=== PATIENT | female | born 1930 | race Caucasian/White ===

== ENCOUNTER 2017-05-02 17:25 | Outpatient (CLI) | payer MEDICARE, OTHER | END 2017-05-02 17:26 | disposition EMS.NT | LOC: EMS 17:25 | PROVIDERS: ATTEND Surgery | DX: R69 Illness, unspecified (principal) ==

== ENCOUNTER 2017-06-09 17:57 | Outpatient (CLI) | payer MEDICARE, OTHER | END 2017-06-09 17:58 | disposition critical access hospital (66) | LOC: EMS 17:57 | PROVIDERS: ATTEND Surgery | DX: F41.9 Anxiety disorder, unspecified (principal) | CPT/HCPCS: A0425; A0429 ==

== ENCOUNTER 2017-06-09 18:23 | Emergency (ER) | payer MEDICARE, OTHER ==
--- NOTE | 2017-06-09 19:23 | ED Physician Documentation ---
History of Present Illness - Stated complaint Stated Complaint: ANXIETY - Chief complaint Chief Complaint: General - History obtained from History obtained from: Patient - History of Present Illness Timing: Other (She has had a lot of losses recently, most notably her about a year and a half ago. She did not take her extended release Xanax this morning, and while cleaning out some of his things she developed a panic attack. She feels better now.) Review of Systems Constitutional: denies: Fever, Chills GI: denies: Abdominal Pain, Nausea, Vomiting Neurologic: denies: Syncope Psychiatric: denies: Suicidal, Homicidal PD PAST MEDICAL HISTORY - Past Medical History Cardiovascular: Hypertension, High cholesterol, Coronary artery disease, [place] Respiratory: Pneumonia Psych: Depression, Anxiety Musculoskeletal: Fibromyalgia, Chronic back pain - Past Surgical History Past Surgical History: Yes Cardiovascular: Coronary stent - Present Medications Home Medications: Ambulatory Orders Medication Instructions Recorded Confirmed Alprazolam [Alprazolam ER] 0.5 mg PO DAILY 07/22/13 06/09/17 Azelastine HCl [Astelin] 137 mcg NS BID 07/22/13 06/09/17 Estradiol 0.05 mg Patch [Vivelle] 1 each TOP DAILY 07/22/13 06/09/17 Metoprolol Succinate 25 mg PO DAILY 07/22/13 06/09/17 Mirtazapine 30 mg PO DAILY 07/22/13 06/09/17 Simvastatin 20 mg PO DAILY 07/22/13 06/09/17 Triazolam 37.5 mg PO QPM 07/22/13 06/09/17 Escitalopram [Lexapro] 20 mg ORAL DAILY 08/25/15 06/09/17 Aspirin/Dipyridamole [Aggrenox] 1 tab PO DAILY 11/22/15 06/09/17 Alprazolam [Xanax] 0.25 mg PO Q8H PRN #15 tablet 06/09/17 Losartan [Cozaar] 25 mg PO DAILY 06/09/17 06/09/17 - Allergies Allergies/Adverse Reactions: Allergies Allergy/AdvReac Type Severity Reaction Status Date / Time clarithromycin [From Biaxin] AdvReac Unknown Rash Verified 10/26/15 11:39 codeine AdvReac Unknown Nausea Verified 10/26/15 11:39 cortisone AdvReac Unknown Rash Verified 10/26/15 11:39 cyclobenzaprine AdvReac Unknown Cramps Verified 10/26/15 11:39 [Cyclobenzaprine] duloxetine HCl * AdvReac Unknown Rash Verified 10/26/15 11:39 [From Cymbalta] fluorometholone AdvReac Unknown Rash Verified 10/26/15 11:39 gabapentin [From Neurontin] AdvReac Unknown Cramps Verified 10/26/15 11:39 ibuprofen [From Advil] AdvReac Unknown Nausea Verified 10/26/15 11:39 iodine AdvReac Unknown Rash Verified 10/26/15 11:39 nepafenac [From Nevanac] AdvReac Unknown Nausea Verified 10/26/15 11:39 oxycodone AdvReac Unknown Nausea Verified 10/26/15 11:39 prednisone AdvReac Unknown Anxiety Verified 10/26/15 11:39 propoxyphene HCl * AdvReac Unknown Nausea Verified 10/26/15 11:39 [From Darvon] ciprofloxacin AdvReac Anxiety Verified 10/26/15 11:39 clonazepam AdvReac Unknown Verified 10/26/15 11:39 iodine Allergy Hives Uncoded 10/26/15 11:39 bees AdvReac Unknown Respiratory Uncoded 10/26/15 11:39 - Social History Does the pt smoke?: No Smoking Status: Former smoker Does the pt drink ETOH?: Yes Does the pt have substance abuse?: No - Immunizations Immunizations are current?: Yes Immunizations: TDAP current <10years PD ED PE NORMAL - Vitals Vital signs reviewed: Yes - General General: Alert and oriented X 3, No acute distress - HEENT HEENT: PERRL, EOMI - Neuro Neuro: Alert and oriented X 3, Normal speech - Psych Psych: Normal mood, Normal affect Results - Vitals Vitals: Vital Signs - 24 hr 06/09/17 18:28 Temperature 36.6 C Heart Rate 73 Respiratory 20 Rate Blood Pressure 163/77 H O2 Saturation 95 Oxygen O2 Source Room air Departure - Departure Disposition: 01 Home, Self Care Clinical Impression: Anxiety Condition: Good Record reviewed to determine appropriate education?: Yes Instructions: ED Panic Attack Prescriptions: Alprazolam [Xanax] 0.25 mg PO Q8H PRN #15 tablet PRN Reason: acute anxiety Comments: Consider following up with a psychiatrist or counselor, one option in your area would be [facility], the phone number is [phone].
[2017-06-09 20:09] VITALS: BP 119/70
== END 2017-06-09 20:13 | disposition home or self-care (01) ==
LOC: EDUNIT# → ED 18:23
DX: F41.9 Anxiety disorder, unspecified (principal); I10 Essential (primary) hypertension; I25.10 Atherosclerotic heart disease of native coronary artery without angina pectoris; I25.2 Old myocardial infarction; Z95.5 Presence of coronary angioplasty implant and graft; Z87.891 Personal history of nicotine dependence
CPT/HCPCS: 99283

== ENCOUNTER 2017-07-28 12:07 | Outpatient (CLI) | payer MEDICARE, OTHER | END 2017-07-28 12:08 | disposition critical access hospital (66) | LOC: EMS 12:07 | PROVIDERS: ATTEND Surgery | DX: R42 Dizziness and giddiness (principal) | CPT/HCPCS: A0425; A0429 ==

== ENCOUNTER 2017-07-28 12:08 | Emergency (ER) | payer MEDICARE, OTHER ==
[2017-07-28 12:38] LABS: BASOPHILS # (AUTO) 0.1 10^3/uL (0.0-0.1); BASOPHILS % (AUTO) 0.7 %; EOSINOPHILS # (AUTO) 0.1 10^3/uL (0.0-0.7); EOSINOPHILS % (AUTO) 1.3 %; HGB - HEMOGLOBIN 13.1 g/dL (12.0-16.0); LYMPHOCYTES # (AUTO) 1.4 10^3/uL (1.5-3.5); LYMPHOCYTES % (AUTO) 18.8 %; MEAN CORPUSCULAR HEMOGLOBIN 32.3 pg (27.0-31.0); MEAN CORPUSCULAR HGB CONC 33.4 g/dL (32.0-36.0); MEAN CORPUSCULAR VOLUME 96.5 fL (81.0-99.0); MEAN PLATELET VOLUME 8.3 fL (7.9-10.8); MONOCYTES # (AUTO) 0.6 10^3/uL (0.0-1.0); MONOCYTES % (AUTO) 8.3 %; NEUTROPHILS # (AUTO) 5.1 10^3/uL (1.5-6.6); NEUTROPHILS % (AUTO) 70.9 %; NUCLEATED RED BLOOD CELLS AUTO 0.1 /100WBC; RED BLOOD COUNT 4.05 10^6/uL (4.20-5.40); RED CELL DISTRIBUTION WIDTH 12.4 % (12.0-15.0); UNCORRECTED WHITE BLOOD COUNT 7.2 x10^3/uL; WHITE BLOOD COUNT 7.2 x10^3/uL (4.8-10.8)
[2017-07-28 12:51] LABS: ALBUMIN/GLOBULIN RATIO 1.4 (1.0-2.2); BILIRUBIN,TOTAL 0.7 mg/dL (0.2-1.0); CALCIUM 9.1 mg/dL (8.5-10.3); CREATININE 0.6 mg/dL (0.4-1.0); POTASSIUM 4.3 mmol/L (3.5-5.0); TOTAL PROTEIN 6.6 g/dL (6.7-8.2)
[2017-07-28] MEDS: SODIUM CHLORIDE 0.9% IV ONE (13:00)
[2017-07-28] MEDS: PROCHLORPERAZINE IV ONE (13:00)
--- NOTE | 2017-07-28 13:00 | ED Physician Documentation ---
History of Present Illness - Stated complaint Stated Complaint: UNSTEADY - Chief complaint Chief Complaint: Neuro - Additonal information Additional information: Patient is a 86-year-old female that lives at home alone. She had the onset of dizziness last night. This dizziness is described as a spinning sensation is worse with standing and moving and better with rest. She does have a history of vertigo many years ago and did practice Napoleon maneuvers. The vertigo was still present this morning so she decided to come in for evaluation. She says she walks like a drunk person. She denies any headache, chest pain, abdominal pain, nausea or vomiting. There is no ringing in the ears. She has no weakness numbness or tingling anywhere and has not had any speech problems. Review of systems: For pertinent positive and negatives in the review of systems please see the history of present illness, otherwise all other systems have been reviewed and are negative. Dragon disclaimer: Parts of this medical record were created using voice recognition technology. Because of the inherent limitations of this system, occasional same sounding word substitutions do occur and persist despite proofreading. Please read the document for context. Review of Systems Constitutional: denies: Fever, Chills Neurologic: denies: Generalized weakness, Focal weakness, Numbness, Difficulty speaking, Near syncope, Syncope, Seizure, Confused, Altered mental status, Unresponsive PD PAST MEDICAL HISTORY - Past Medical History Cardiovascular: Hypertension, High cholesterol, Coronary artery disease, [place] Respiratory: Pneumonia Psych: Depression, Anxiety Musculoskeletal: Fibromyalgia, Chronic back pain - Past Surgical History Past Surgical History: Yes Cardiovascular: Coronary stent - Present Medications Home Medications: Ambulatory Orders Medication Instructions Recorded Confirmed Alprazolam [Alprazolam ER] 0.5 mg PO DAILY 07/22/13 07/28/17 Azelastine HCl [Astelin] 137 mcg NS BID 07/22/13 07/28/17 Estradiol 0.05 mg Patch [Vivelle] 1 each TOP DAILY 07/22/13 07/28/17 Metoprolol Succinate 25 mg PO DAILY 07/22/13 07/28/17 Mirtazapine 30 mg PO DAILY 07/22/13 07/28/17 Simvastatin 20 mg PO DAILY 07/22/13 07/28/17 Triazolam 37.5 mg PO QPM 07/22/13 07/28/17 Escitalopram [Lexapro] 20 mg ORAL DAILY 08/25/15 07/28/17 Aspirin/Dipyridamole [Aggrenox] 1 tab PO DAILY 11/22/15 07/28/17 Alprazolam [Xanax] 0.25 mg PO Q8H PRN #15 tablet 06/09/17 07/28/17 Losartan [Cozaar] 25 mg PO DAILY 06/09/17 07/28/17 Escitalopram Oxalate [Lexapro] 20 mg PO DAILY PM 07/28/17 07/28/17 Meclizine HCl 12.5 mg PO TID PRN #14 tablet 07/28/17 Sulfamethox/Trimeth 800/160 1 tab PO BID #6 tablet 07/28/17 [Bactrim Ds 800/160] - Allergies Allergies/Adverse Reactions: Allergies Allergy/AdvReac Type Severity Reaction Status Date / Time clarithromycin [From Biaxin] AdvReac Unknown Rash Verified 07/28/17 12:12 codeine AdvReac Unknown Nausea Verified 07/28/17 12:12 cortisone AdvReac Unknown Rash Verified 07/28/17 12:12 cyclobenzaprine AdvReac Unknown Cramps Verified 07/28/17 12:12 [Cyclobenzaprine] duloxetine HCl * AdvReac Unknown Rash Verified 07/28/17 12:12 [From Cymbalta] fluorometholone AdvReac Unknown Rash Verified 07/28/17 12:12 gabapentin [From Neurontin] AdvReac Unknown Cramps Verified 07/28/17 12:12 ibuprofen [From Advil] AdvReac Unknown Nausea Verified 07/28/17 12:12 iodine AdvReac Unknown Rash Verified 07/28/17 12:12 nepafenac [From Nevanac] AdvReac Unknown Nausea Verified 07/28/17 12:12 oxycodone AdvReac Unknown Nausea Verified 07/28/17 12:12 prednisone AdvReac Unknown Anxiety Verified 07/28/17 12:12 propoxyphene HCl * AdvReac Unknown Nausea Verified 07/28/17 12:12 [From Darvon] ciprofloxacin AdvReac Anxiety Verified 07/28/17 12:12 clonazepam AdvReac Unknown Verified 07/28/17 12:12 iodine Allergy Hives Uncoded 07/28/17 12:12 bees AdvReac Unknown Respiratory Uncoded 07/28/17 12:12 - Social History Does the pt smoke?: No Smoking Status: Former smoker Does the pt drink ETOH?: Yes Does the pt have substance abuse?: No - Immunizations Immunizations are current?: Yes Immunizations: TDAP current <10years PD ED PE NORMAL - Vitals Vital signs reviewed: Yes - General General: Alert and oriented X 3, No acute distress, Well developed/nourished, Other (Well-appearing woman who looks young for age is having some difficulty sitting upright) - HEENT HEENT: Atraumatic, PERRL, EOMI, Pharynx benign, Dentition benign - Neck Neck: Supple, no meningeal sign - Cardiac Cardiac: RRR, No murmur, No gallop, No rub - Respiratory Respiratory: No respiratory distress, Clear bilaterally - Abdomen Abdomen: Normal bowel sounds, Soft, Non tender, Non distended - Back Back: No CVA TTP - Derm Derm: Normal color, Warm and dry, No rash, Other - Extremities Extremities: No deformity, No tenderness to palpate, Normal ROM s pain - Neuro Neuro: Alert and oriented X 3, 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, No motor deficit, No sensory deficit Results - Vitals Vitals: Vital Signs - 24 hr 07/28/17 07/28/17 07/28/17 12:08 12:18 13:59 Temperature 36.9 C 36.5 C Heart Rate 66 60 Heart Rate [ 61 Sitting] Heart Rate [ 66 Standing] Heart Rate [ 61 Supine] Respiratory 20 14 Rate Blood Pressure 132/78 H 123/73 Blood Pressure 164/57 H [Sitting] Blood Pressure 153/64 H [Standing] Blood Pressure 137/63 H [Supine] O2 Saturation 97 98 Oxygen O2 Source Room air - Labs Labs: Laboratory Tests 07/28/17 07/28/17 07/28/17 12:30 12:30 12:30 WBC 7.2 RBC 4.05 L Hgb 13.1 Hct 39.0 MCV 96.5 MCH 32.3 H MCHC 33.4 RDW 12.4 Plt Count 214 MPV 8.3 Neut # 5.1 Lymph # 1.4 L [place] # 0.6 Eos # 0.1 Baso # 0.1 Absolute Nucleated RBC 0.00 Nucleated RBCs 0.1 Sodium 136 Potassium 4.3 Chloride 102 Carbon Dioxide 27 Anion Gap 7.0 BUN 18 Creatinine 0.6 Estimated GFR (MDRD) 95 Glucose 118 H Calcium 9.1 Total Bilirubin 0.7 AST 21 ALT 17 Alkaline Phosphatase 46 Troponin I < 0.04 Total Protein 6.6 L Albumin 3.8 Globulin 2.8 Albumin/Globulin Ratio 1.4 Lipase 24 Urine Color Urine Clarity Urine pH Ur Specific [place] Urine Protein Urine Glucose (UA) Urine Ketones Urine Occult Blood Urine Nitrite Urine Bilirubin Urine Urobilinogen Ur Leukocyte Esterase Urine RBC Urine WBC Ur Squamous Epith Cells Urine Bacteria Ur Microscopic Review Urine Culture Comments 07/28/17 14:15 WBC RBC Hgb Hct MCV MCH MCHC RDW Plt Count MPV Neut # Lymph # [place] # Eos # Baso # Absolute Nucleated RBC Nucleated RBCs Sodium Potassium Chloride Carbon Dioxide Anion Gap BUN Creatinine Estimated GFR (MDRD) Glucose Calcium Total Bilirubin AST ALT Alkaline Phosphatase Troponin I Total Protein Albumin Globulin Albumin/Globulin Ratio Lipase Urine Color YELLOW Urine Clarity HAZY Urine pH 7.5 Ur Specific [place] 1.010 Urine Protein NEGATIVE Urine Glucose (UA) NEGATIVE Urine Ketones NEGATIVE Urine Occult Blood NEGATIVE Urine Nitrite NEGATIVE Urine Bilirubin NEGATIVE Urine Urobilinogen 0.2 (NORMAL) Ur Leukocyte Esterase TRACE H Urine RBC 0-5 Urine WBC 4-5 Ur Squamous Epith Cells MANY Squamous H Urine Bacteria Few Ur Microscopic Review INDICATED Urine Culture Comments NOT INDICATED PD MEDICAL DECISION MAKING - ED course ED course: Pleasant female who presents with positional vertigo since last night. On examination she has mild ataxia and positive Hallpike testing to the right. She otherwise has a normal neurologic, cardiac, and pulmonary examination. EKG shows normal sinus rhythm normal CA, QRS, QT interval without ST segment elevation depression T-wave inversion. Chest x-ray shows no acute disease, CT scan of the head is done and is unremarkable. Routine labs are done and are normal. Urine suggests a possible mild urinary tract infection which we have decided to go ahead and treat. This is discussed with the patient. I believe she is low risk for cerebrovascular and posterior circulation issues. She will be discharged home at this point on meclizine and a very short course for a mild urinary tract infection consisting of 3 days of Bactrim. Disposition: To home Clinical impression: 1. Dizziness 2. Possible mild urinary tract infection Departure - Departure Disposition: 01 Home, Self Care Clinical Impression: Vertigo, UTI (urinary tract infection) Condition: Good Instructions: Meclizine, ED UTI Cystitis Female, ED Vertigo Unspecified Follow-Up: Celia Desir MD [Primary Care Provider] - Prescriptions: Sulfamethox/Trimeth 800/160 [Bactrim Ds 800/160] 1 tab PO BID #6 tablet Meclizine HCl 12.5 mg PO TID PRN #14 tablet PRN Reason: Vertigo
[2017-07-28] MEDS: SODIUM CHLORIDE 0.9% 1,000 ML IV ONE (13:02)
[2017-07-28] MEDS: diphenhydrAMINE INJ 50 MG/ML VIAL IVP STA (13:15)
[2017-07-28] MEDS ORDERED: PROCHLORPERAZINE 10 MG/2 ML VIAL ONE (13:16)
[2017-07-28] MEDS ORDERED: diphenhydrAMINE INJ 50 MG/ML VIAL ONE (13:16)
--- NOTE | 2017-07-28 13:51 | CT Preliminary Report ---
Exam: CT Head W/O IMPRESSION: 1. No acute bleed, no acute infarct. 2. Mild supratentorial periventricular white matter changes [facility] SITE ID: [id number]
--- NOTE | 2017-07-28 13:53 | CT Report ---
EXAM: CT HEAD EXAM DATE: 07/28/2017 01:31 PM. CLINICAL HISTORY: Ataxia, dizziness. COMPARISON: 07/22/2013. TECHNIQUE: Multiaxial CT images were obtained from the foramen magnum to the vertex. IV contrast: Non e. Reformats: Coronal. In accordance with CT protocol optimization, one or more of the following dose reduction techniques w ere utilized for this exam: automated exposure control, adjustment of mA and/or KV based on patient s ize, or use of iterative reconstructive technique. FINDINGS: Parenchyma: No intraparenchymal hemorrhage. No evidence of mass, midline shift, or CT findings of inf arction. Meyer-white differentiation is distinct. Mild supratentorial periventricular white matter tory nges Extraaxial Spaces: Normal for age. No subdural or epidural collections identified. Ventricles: Normal in size and position. Sinuses: Imaged paranasal sinuses, orbits, and mastoids show no significant abnormality. Bones: No evidence of fracture or calvarial defect. Other: None. IMPRESSION: 1. No acute bleed, no acute infarct. 2. Mild supratentorial periventricular white matter changes [facility] Referring Provider Line: [phone] SITE ID: [id number]
[2017-07-28 14:36] LABS: BILIRUBIN,URINE NEGATIVE (NEGATIVE); PH,URINE 7.5 PH (5.0-7.5)
[2017-07-28 14:37] LABS: UA w/ MICROSCOPIC CHARGE YES
[2017-07-28 14:42] LABS: UR CULTURE IF IND NOT INDICATED
[2017-07-28 16:08] VITALS: BP 169/77
== END 2017-07-28 16:45 | disposition home or self-care (01) ==
LOC: EDUNIT# → ED 12:08
DX: R42 Dizziness and giddiness (principal); N39.0 Urinary tract infection, site not specified; I49.3 Ventricular premature depolarization; I10 Essential (primary) hypertension; I25.2 Old myocardial infarction; I25.10 Atherosclerotic heart disease of native coronary artery without angina pectoris; Z95.5 Presence of coronary angioplasty implant and graft; Z87.891 Personal history of nicotine dependence
CPT/HCPCS: 36415; 70450; 80053; 81001; 81003; 83690; 84484; 85025; 87086; 93005; 96374; 96375; 99283; 99284

== ENCOUNTER 2018-02-27 17:19 | Outpatient (CLI) | payer MEDICARE, OTHER | END 2018-02-27 17:20 | disposition EMS.NT | LOC: EMS 17:19 | PROVIDERS: ATTEND Surgery | DX: S61.412A Laceration without foreign body of left hand, initial encounter (principal); W26.8XXA Contact with other sharp object(s), not elsewhere classified, initial encounter; Y92.009 Unspecified place in unspecified non-institutional (private) residence as the place of occurrence of the external cause ==

== ENCOUNTER 2018-03-28 14:19 | Outpatient (CLI) | payer MEDICARE, OTHER | END 2018-03-28 14:20 | disposition critical access hospital (66) | LOC: EMS 14:19 | PROVIDERS: ATTEND Surgery | DX: R53.83 Other fatigue (principal); R53.1 Weakness; R50.9 Fever, unspecified | CPT/HCPCS: A0425; A0427 ==

== ENCOUNTER 2018-03-28 14:46 | Emergency (ER) | payer MEDICARE, OTHER ==
--- NOTE | 2018-03-28 15:37 | ED Physician Documentation ---
PD HPI URI - Stated complaint Stated Complaint: PNA - Chief complaint Chief Complaint: Resp - History obtained from History obtained from: Patient - History of Present Illness Timing - onset: How many days ago (4) Timing duration: Days (4) Timing details: Gradual onset, Still present Associated symptoms: Fever, Chills, Sweats, Nasal congestion, Dry cough Improves by: Rest Worsened by: Activity Similar symptoms before: Diagnosis (pneumonia) Recently seen: Not recently seen - Additional information Additional information: 87-year-old female who has a prior history of pneumonia more than once has developed a cough congestion and fever. She is developed weakness beginning 2 days ago and she has decided to come to the emergency department. She has had pneumonia not requiring hospitalization twice previously. She has multiple medication sensitivities and usually is improved with amoxicillin. Review of Systems Constitutional: reports: Fever, Chills, Myalgias, Fatigue, Sweats Eyes: denies: Decreased vision Ears: denies: Ear pain Nose: reports: Rhinorrhea / runny nose, Congestion Throat: denies: Sore throat Cardiac: denies: Chest pain / pressure, Palpitations Respiratory: reports: Cough. denies: Dyspnea GI: denies: Abdominal Pain, Nausea, Vomiting : denies: Dysuria, Frequency Skin: denies: Rash Musculoskeletal: denies: Neck pain, Back pain, Extremity pain Neurologic: denies: Generalized weakness, Focal weakness, Numbness PD PAST MEDICAL HISTORY - Past Medical History Cardiovascular: Hypertension, High cholesterol, Coronary artery disease, [place] Respiratory: Pneumonia Psych: Depression, Anxiety Musculoskeletal: Fibromyalgia, Chronic back pain - Past Surgical History Past Surgical History: Yes Cardiovascular: Coronary stent - Present Medications Home Medications: Ambulatory Orders Medication Instructions Recorded Confirmed Alprazolam [Alprazolam ER] 0.5 mg PO DAILY 07/22/13 07/28/17 Azelastine HCl [Astelin] 137 mcg NS BID 07/22/13 07/28/17 Estradiol 0.05 mg Patch [Vivelle] 1 each TOP DAILY 07/22/13 07/28/17 Metoprolol Succinate 25 mg PO DAILY 07/22/13 07/28/17 Mirtazapine 30 mg PO DAILY 07/22/13 07/28/17 Simvastatin 20 mg PO DAILY 07/22/13 07/28/17 Triazolam 37.5 mg PO QPM 07/22/13 07/28/17 Escitalopram [Lexapro] 20 mg ORAL DAILY 08/25/15 07/28/17 Aspirin/Dipyridamole [Aggrenox] 1 tab PO DAILY 11/22/15 07/28/17 Alprazolam [Xanax] 0.25 mg PO Q8H PRN #15 tablet 06/09/17 07/28/17 Losartan [Cozaar] 25 mg PO DAILY 06/09/17 07/28/17 Escitalopram Oxalate [Lexapro] 20 mg PO DAILY PM 07/28/17 07/28/17 Meclizine HCl 12.5 mg PO TID PRN #14 tablet 07/28/17 Sulfamethox/Trimeth 800/160 1 tab PO BID #6 tablet 07/28/17 [Bactrim Ds 800/160] Amox/Clav 875/125 [Augmentin] 1 each PO Q12H #20 tablet 03/28/18 - Allergies Allergies/Adverse Reactions: Allergies Allergy/AdvReac Type Severity Reaction Status Date / Time clarithromycin [From Biaxin] AdvReac Unknown Rash Verified 03/28/18 15:02 codeine AdvReac Unknown Nausea Verified 03/28/18 15:02 cortisone AdvReac Unknown Rash Verified 03/28/18 15:02 cyclobenzaprine AdvReac Unknown Cramps Verified 03/28/18 15:02 [Cyclobenzaprine] duloxetine HCl * AdvReac Unknown Rash Verified 03/28/18 15:02 [From Cymbalta] fluorometholone AdvReac Unknown Rash Verified 03/28/18 15:02 gabapentin [From Neurontin] AdvReac Unknown Cramps Verified 03/28/18 15:02 ibuprofen [From Advil] AdvReac Unknown Nausea Verified 03/28/18 15:02 iodine AdvReac Unknown Rash Verified 03/28/18 15:02 nepafenac [From Nevanac] AdvReac Unknown Nausea Verified 03/28/18 15:02 oxycodone AdvReac Unknown Nausea Verified 03/28/18 15:02 prednisone AdvReac Unknown Anxiety Verified 03/28/18 15:02 propoxyphene HCl * AdvReac Unknown Nausea Verified 03/28/18 15:02 [From Darvon] ciprofloxacin AdvReac Anxiety Verified 03/28/18 15:02 clonazepam AdvReac Unknown Verified 03/28/18 15:02 iodine Allergy Hives Uncoded 03/28/18 15:02 bees AdvReac Unknown Respiratory Uncoded 03/28/18 15:02 - Social History Does the pt smoke?: No Smoking Status: Former smoker Does the pt drink ETOH?: Yes Does the pt have substance abuse?: No - Immunizations Immunizations are current?: Yes Immunizations: TDAP current <10years PD ED PE NORMAL - Vitals Vital signs reviewed: Yes (normal ) - General General: Alert and oriented X 3, No acute distress, Well developed/nourished - HEENT HEENT: Atraumatic, PERRL, EOMI, Ears normal - Neck Neck: Supple, no meningeal sign, No bony TTP - Cardiac Cardiac: RRR, No murmur - Respiratory Respiratory: No respiratory distress, Other (rhonchi in the right mid lung field with diminished breath sounds dominga in the left base. ) - Abdomen Abdomen: Soft, Non tender - Back Back: No CVA TTP, No spinal TTP - Derm Derm: Normal color, Warm and dry, No rash - Extremities Extremities: No deformity, No edema - Neuro Neuro: No motor deficit, No sensory deficit Eye Opening: Spontaneous Motor: Obeys Commands Verbal: Oriented GCS Score: 15 - Psych Psych: Normal mood, Normal affect Results - Vitals Vitals: Vital Signs - 24 hr 03/28/18 03/28/18 14:57 16:18 Temperature 37.4 C Heart Rate 77 70 Respiratory 17 14 Rate Blood Pressure 145/67 H 154/70 H O2 Saturation 95 97 Oxygen O2 Source Room air - EKG (time done) 1512 Rate: Rate (enter#) (71) Rhythm: NSR Ischemia: Normal ST segments Other comments: Other comments (early transition) Compare to prior EKG: Changed from prior EKG (SPT 9-5-17 the ectopy has resolved. ) Computer interpretation: Agree with computer - Labs Labs: Laboratory Tests 03/28/18 03/28/18 03/28/18 15:48 15:48 15:48 WBC 8.7 RBC 3.95 L Hgb 12.8 Hct 38.6 MCV 97.8 MCH 32.4 H MCHC 33.1 RDW 12.5 Plt Count 263 MPV 8.9 Neut # 6.4 Lymph # 1.3 L [place] # 0.7 Eos # 0.2 Baso # 0.1 Absolute Nucleated RBC 0.00 Nucleated RBC % 0.0 Sodium 132 L Potassium 4.4 Chloride 98 L Carbon Dioxide 27 Anion Gap 7.0 BUN 19 Creatinine 0.6 Estimated GFR (MDRD) 94 Glucose 117 H Lactic Acid Calcium 8.5 Total Bilirubin 0.7 AST 19 ALT 14 Alkaline Phosphatase 46 Troponin I < 0.04 Total Protein 6.5 L Albumin 3.6 Globulin 2.9 Albumin/Globulin Ratio 1.2 Lipase 17 L Urine Color Urine Clarity Urine pH Ur Specific [place] Urine Protein Urine Glucose (UA) Urine Ketones Urine Occult Blood Urine Nitrite Urine Bilirubin Urine Urobilinogen Ur Leukocyte Esterase Ur Microscopic Review Urine Culture Comments 03/28/18 03/28/18 15:48 16:10 WBC RBC Hgb Hct MCV MCH MCHC RDW Plt Count MPV Neut # Lymph # [place] # Eos # Baso # Absolute Nucleated RBC Nucleated RBC % Sodium Potassium Chloride Carbon Dioxide Anion Gap BUN Creatinine Estimated GFR (MDRD) Glucose Lactic Acid 1.0 Calcium Total Bilirubin AST ALT Alkaline Phosphatase Troponin I Total Protein Albumin Globulin Albumin/Globulin Ratio Lipase Urine Color YELLOW Urine Clarity CLEAR Urine pH 8.0 H Ur Specific [place] 1.010 Urine Protein NEGATIVE Urine Glucose (UA) NEGATIVE Urine Ketones NEGATIVE Urine Occult Blood NEGATIVE Urine Nitrite NEGATIVE Urine Bilirubin NEGATIVE Urine Urobilinogen 0.2 (NORMAL) Ur Leukocyte Esterase NEGATIVE Ur Microscopic Review NOT INDICATED Urine Culture Comments NOT INDICATED - Rads (name of study) 2 view chest Radiology: Prelim report reviewed (Impression: 1. Mild bronchial thickening findings which can be seen with bronchitis or reactive airways disease. No consolidation. 2. Right lower lung parenchymal scarring, stable.), EMP read indepedently, See rad report PD MEDICAL DECISION MAKING - ED course Complexity details: reviewed results, re-evaluated patient, considered differential, d/w patient ED course: 87 y/o female with a cough and fever has minimal findings on CXR and normal WBC. She is not hypoxic. She is treated in the ED with ceftriaxone and we will put her on a course of augmentin. Departure - Departure Disposition: 01 Home, Self Care Clinical Impression: Pneumonia Condition: Stable Instructions: ED Pneumonia Adult Follow-Up: Celia Desir MD [Physician No Access] - Prescriptions: Amox/Clav 875/125 [Augmentin] 1 each PO Q12H #20 tablet
[2018-03-28 16:08] LABS: ALBUMIN 3.6 g/dL (3.2-5.5); ALBUMIN/GLOBULIN RATIO 1.2 (1.0-2.2); BILIRUBIN,TOTAL 0.7 mg/dL (0.2-1.0); CALCIUM 8.5 mg/dL (8.5-10.3); CREATININE 0.6 mg/dL (0.4-1.0); TOTAL PROTEIN 6.5 g/dL (6.7-8.2)
--- NOTE | 2018-03-28 16:13 | XRAY Preliminary Report ---
Exam: XR CHEST 2 VIEW X-RAY IMPRESSION: 1. Mild bronchial thickening findings which can be seen with bronchitis or reactive airways disease . No consolidation. 2. Right lower lung parenchymal scarring, stable. [facility] SITE ID: [id number]
--- NOTE | 2018-03-28 16:14 | XRAY Report ---
EXAM: CHEST RADIOGRAPHY EXAM DATE: 03/28/2018 04:06 PM. CLINICAL HISTORY: R mid lung rhonchi. Shortness of breath. Cough. COMPARISON: 11/22/2015. 10/26/2015. TECHNIQUE: 2 views. FINDINGS: Lungs/Pleura: Scarring in the right lung base unchanged. Mild bronchial thickening . No focal consoli dation. No pneumothorax. No pleural effusions. Mediastinum: Heart size is normal. Aorta is mildly tortuous. Aortic atherosclerosis. Other: Degenerative changes of the thoracic spine. IMPRESSION: 1. Mild bronchial thickening findings which can be seen with bronchitis or reactive airways disease . No consolidation. 2. Right lower lung parenchymal scarring, stable. [facility] Referring Provider Line: [phone] SITE ID: [id number]
[2018-03-28 16:16] LABS: BASOPHILS # (AUTO) 0.1 10^3/uL (0.0-0.1); BASOPHILS % (AUTO) 0.8 %; EOSINOPHILS # (AUTO) 0.2 10^3/uL (0.0-0.7); EOSINOPHILS % (AUTO) 2.4 %; HGB - HEMOGLOBIN 12.8 g/dL (12.0-16.0); LYMPHOCYTES # (AUTO) 1.3 10^3/uL (1.5-3.5); LYMPHOCYTES % (AUTO) 15.2 %; MEAN CORPUSCULAR HEMOGLOBIN 32.4 pg (27.0-31.0); MEAN CORPUSCULAR HGB CONC 33.1 g/dL (32.0-36.0); MEAN CORPUSCULAR VOLUME 97.8 fL (81.0-99.0); MEAN PLATELET VOLUME 8.9 fL (7.9-10.8); MONOCYTES # (AUTO) 0.7 10^3/uL (0.0-1.0); MONOCYTES % (AUTO) 7.6 %; NEUTROPHILS # (AUTO) 6.4 10^3/uL (1.5-6.6); PLT - PLATELET COUNT 263 10^3/uL (130-450); RED BLOOD COUNT 3.95 10^6/uL (4.20-5.40); RED CELL DISTRIBUTION WIDTH 12.5 % (12.0-15.0); WHITE BLOOD COUNT 8.7 x10^3/uL (4.8-10.8)
[2018-03-28 16:25] LABS: BILIRUBIN,URINE NEGATIVE (NEGATIVE); GLUCOSE, URINE (UA) NEGATIVE (NEGATIVE); KETONES,URINE (UA) NEGATIVE (NEGATIVE); LEUKOCYTE ESTERASE, URINE NEGATIVE (NEGATIVE); NITRITE,URINE NEGATIVE (NEGATIVE); OCCULT BLOOD,URINE NEGATIVE (NEGATIVE); PROTEIN,URINE NEGATIVE (NEGATIVE); UROBILINOGEN,URINE 0.2 (NORMAL) E.U./dL (NORMAL)
[2018-03-28 16:27] LABS: CLARITY,URINE CLEAR (CLEAR)
[2018-03-28] MEDS ORDERED: IPRATROPIUM/ALBUTEROL 3 ML NEB INH STA (17:16)
[2018-03-28] MEDS ORDERED: cefTRIAXone 1 GM in SODIUM CHLORIDE 0.9% MINIBAG 100 ML IV STA (17:16)
[2018-03-28 18:26] VITALS: BP 155/72
== END 2018-03-28 18:24 | disposition home or self-care (01) ==
LOC: EDUNIT# → ED 14:46
DX: J18.9 Pneumonia, unspecified organism (principal); I10 Essential (primary) hypertension; E78.00 Pure hypercholesterolemia, unspecified; I25.10 Atherosclerotic heart disease of native coronary artery without angina pectoris; I25.2 Old myocardial infarction; Z79.82 Long term (current) use of aspirin; Z95.5 Presence of coronary angioplasty implant and graft; Z87.891 Personal history of nicotine dependence
CPT/HCPCS: 36415; 71046; 80053; 81001; 81003; 83605; 83690; 84484; 85025; 87040; 87086; 96365; 99284

== ENCOUNTER 2018-04-05 14:38 | Outpatient (CLI) | payer MEDICARE, OTHER | END 2018-04-05 14:39 | disposition critical access hospital (66) | LOC: EMS 14:38 | PROVIDERS: ATTEND Surgery | DX: R53.1 Weakness (principal) | CPT/HCPCS: A0425; A0429 ==

== ENCOUNTER 2018-04-05 15:09 | Emergency (ER) | payer MEDICARE, OTHER ==
[2018-04-05 15:57] LABS: BASOPHILS # (AUTO) 0.1 10^3/uL (0.0-0.1); EOSINOPHILS # (AUTO) 0.2 10^3/uL (0.0-0.7); EOSINOPHILS % (AUTO) 2.9 %; HGB - HEMOGLOBIN 13.3 g/dL (12.0-16.0); LYMPHOCYTES # (AUTO) 1.4 10^3/uL (1.5-3.5); LYMPHOCYTES % (AUTO) 20.3 %; MEAN CORPUSCULAR HEMOGLOBIN 31.7 pg (27.0-31.0); MEAN CORPUSCULAR HGB CONC 32.7 g/dL (32.0-36.0); MEAN CORPUSCULAR VOLUME 96.9 fL (81.0-99.0); MEAN PLATELET VOLUME 8.4 fL (7.9-10.8); MONOCYTES # (AUTO) 0.6 10^3/uL (0.0-1.0); NEUTROPHILS # (AUTO) 4.7 10^3/uL (1.5-6.6); NEUTROPHILS % (AUTO) 67.8 %; PLT - PLATELET COUNT 270 10^3/uL (130-450); RED BLOOD COUNT 4.19 10^6/uL (4.20-5.40); RED CELL DISTRIBUTION WIDTH 12.4 % (12.0-15.0); WHITE BLOOD COUNT 6.9 x10^3/uL (4.8-10.8)
--- NOTE | 2018-04-05 15:57 | XRAY Preliminary Report ---
Exam: XR CHEST 2 VIEW X-RAY IMPRESSION: Mild bronchial wall thickening as before suggesting bronchitis or reactive airways diseas e without focal consolidation. [facility] SITE ID: [id number]
--- NOTE | 2018-04-05 16:01 | XRAY Report ---
EXAM: CHEST RADIOGRAPHY EXAM DATE: 04/05/2018 03:38 PM. CLINICAL HISTORY: Bibasilar rhonchi LR. COMPARISON: Chest radiograph 03/28/2018. CT chest without contrast 08/25/2015. TECHNIQUE: 2 views. FINDINGS: Lungs/Pleura: Minimal scarring at the right lung base again noted. No focal consolidation. No pleural effusion. No pneumothorax. Mild bronchial wall thickening again seen. Mediastinum: Heart and mediastinal contours are stable with normal heart size. Pulmonary vasculature is within normal limits.. Other: Degenerative spondylitic changes of the thoracic spine again noted. IMPRESSION: Mild bronchial wall thickening as before suggesting bronchitis or reactive airways diseas e without focal consolidation. [facility] Referring Provider Line: [phone] SITE ID: [id number]
[2018-04-05 16:11] LABS: ALBUMIN 3.8 g/dL (3.2-5.5); ALBUMIN/GLOBULIN RATIO 1.2 (1.0-2.2); BILIRUBIN,TOTAL 0.7 mg/dL (0.2-1.0); CALCIUM 8.8 mg/dL (8.5-10.3); CREATININE 0.8 mg/dL (0.4-1.0)
[2018-04-05 17:32] LABS: BILIRUBIN,URINE NEGATIVE (NEGATIVE); GLUCOSE, URINE (UA) NEGATIVE (NEGATIVE); KETONES,URINE (UA) NEGATIVE (NEGATIVE); LEUKOCYTE ESTERASE, URINE NEGATIVE (NEGATIVE); NITRITE,URINE NEGATIVE (NEGATIVE); OCCULT BLOOD,URINE NEGATIVE (NEGATIVE); PROTEIN,URINE NEGATIVE (NEGATIVE); UROBILINOGEN,URINE 0.2 (NORMAL) E.U./dL (NORMAL)
--- NOTE | 2018-04-05 17:32 | ED Physician Documentation ---
PD HPI URI - Stated complaint Stated Complaint: WEAK - Chief complaint Chief Complaint: General - History obtained from History obtained from: Patient - History of Present Illness Timing - onset: How many days ago (10) Timing duration: Days (10) Timing details: Gradual onset, Still present Associated symptoms: Fever, Nasal congestion, Dry cough, Other (weakness) Improves by: Rest, Medication Similar symptoms before: Diagnosis (pneumonia) Recently seen: Emergency Dept - Additional information Additional information: 87-year-old female has recently been seen in the emergency department for an upper respiratory tract infection. She was seen by me in the emergency department 8 days ago and placed on Augmentin for pneumonia. She had an x-ray showing some right lower lobe scarring or atelectasis and this was interpreted as pneumonia. She reports that she feels weak and continues to have symptoms and is worried about the pneumonia not resolving. Review of Systems Constitutional: reports: Fever, Fatigue Eyes: denies: Decreased vision Ears: denies: Ear pain Nose: reports: Congestion. denies: Rhinorrhea / runny nose Throat: denies: Sore throat Cardiac: denies: Chest pain / pressure, Palpitations Respiratory: reports: Cough. denies: Dyspnea GI: denies: Nausea, Vomiting : denies: Dysuria, Frequency Skin: denies: Rash Musculoskeletal: denies: Neck pain, Back pain, Extremity pain Neurologic: reports: Generalized weakness. denies: Focal weakness, Numbness PD PAST MEDICAL HISTORY - Past Medical History Cardiovascular: Hypertension, High cholesterol, Coronary artery disease, [place] Respiratory: Pneumonia Psych: Depression, Anxiety Musculoskeletal: Fibromyalgia, Chronic back pain - Past Surgical History Past Surgical History: Yes Cardiovascular: Coronary stent - Present Medications Home Medications: Ambulatory Orders Medication Instructions Recorded Confirmed Alprazolam [Alprazolam ER] 0.5 mg PO DAILY 07/22/13 07/28/17 Azelastine HCl [Astelin] 137 mcg NS BID 07/22/13 07/28/17 Estradiol 0.05 mg Patch [Vivelle] 1 each TOP DAILY 07/22/13 07/28/17 Metoprolol Succinate 25 mg PO DAILY 07/22/13 07/28/17 Mirtazapine 30 mg PO DAILY 07/22/13 07/28/17 Simvastatin 20 mg PO DAILY 07/22/13 07/28/17 Triazolam 37.5 mg PO QPM 07/22/13 07/28/17 Escitalopram [Lexapro] 20 mg ORAL DAILY 08/25/15 07/28/17 Aspirin/Dipyridamole [Aggrenox] 1 tab PO DAILY 11/22/15 07/28/17 Alprazolam [Xanax] 0.25 mg PO Q8H PRN #15 tablet 06/09/17 07/28/17 Losartan [Cozaar] 25 mg PO DAILY 06/09/17 07/28/17 Escitalopram Oxalate [Lexapro] 20 mg PO DAILY PM 07/28/17 07/28/17 Meclizine HCl 12.5 mg PO TID PRN #14 tablet 07/28/17 Sulfamethox/Trimeth 800/160 1 tab PO BID #6 tablet 07/28/17 [Bactrim Ds 800/160] Amox/Clav 875/125 [Augmentin] 1 each PO Q12H #20 tablet 03/28/18 - Allergies Allergies/Adverse Reactions: Allergies Allergy/AdvReac Type Severity Reaction Status Date / Time clarithromycin [From Biaxin] AdvReac Unknown Rash Verified 03/28/18 15:02 codeine AdvReac Unknown Nausea Verified 03/28/18 15:02 cortisone AdvReac Unknown Rash Verified 03/28/18 15:02 cyclobenzaprine AdvReac Unknown Cramps Verified 03/28/18 15:02 [Cyclobenzaprine] duloxetine HCl * AdvReac Unknown Rash Verified 03/28/18 15:02 [From Cymbalta] fluorometholone AdvReac Unknown Rash Verified 03/28/18 15:02 gabapentin [From Neurontin] AdvReac Unknown Cramps Verified 03/28/18 15:02 ibuprofen [From Advil] AdvReac Unknown Nausea Verified 03/28/18 15:02 iodine AdvReac Unknown Rash Verified 03/28/18 15:02 nepafenac [From Nevanac] AdvReac Unknown Nausea Verified 03/28/18 15:02 oxycodone AdvReac Unknown Nausea Verified 03/28/18 15:02 prednisone AdvReac Unknown Anxiety Verified 03/28/18 15:02 propoxyphene HCl * AdvReac Unknown Nausea Verified 03/28/18 15:02 [From Darvon] ciprofloxacin AdvReac Anxiety Verified 03/28/18 15:02 clonazepam AdvReac Unknown Verified 03/28/18 15:02 iodine Allergy Hives Uncoded 03/28/18 15:02 bees AdvReac Unknown Respiratory Uncoded 03/28/18 15:02 - Social History Does the pt smoke?: No Smoking Status: Former smoker Does the pt drink ETOH?: Yes Does the pt have substance abuse?: No - Immunizations Immunizations are current?: Yes Immunizations: TDAP current <10years PD ED PE NORMAL - Vitals Vital signs reviewed: Yes (hypertensive ) - General General: No acute distress, Well developed/nourished - HEENT HEENT: Atraumatic, PERRL, EOMI - Neck Neck: Supple, no meningeal sign, No bony TTP - Cardiac Cardiac: RRR, No murmur - Respiratory Respiratory: No respiratory distress, Other (bibasilar rhonchi is light ) - Abdomen Abdomen: Soft, Non tender - Back Back: No CVA TTP, No spinal TTP - Derm Derm: Normal color, Warm and dry, No rash - Extremities Extremities: No deformity, No edema - Neuro Neuro: No motor deficit, No sensory deficit Eye Opening: Spontaneous Motor: Obeys Commands Verbal: Oriented GCS Score: 15 - Psych Psych: Normal mood, Normal affect Results - Vitals Vitals: Vital Signs - 24 hr 04/05/18 15:11 Temperature 37.2 C Heart Rate 94 Respiratory 16 Rate Blood Pressure 163/81 H O2 Saturation 95 Oxygen O2 Source Room air - Labs Labs: Laboratory Tests 04/05/18 04/05/18 04/05/18 15:48 15:48 15:48 WBC 6.9 RBC 4.19 L Hgb 13.3 Hct 40.6 MCV 96.9 MCH 31.7 H MCHC 32.7 RDW 12.4 Plt Count 270 MPV 8.4 Neut # 4.7 Lymph # 1.4 L [place] # 0.6 Eos # 0.2 Baso # 0.1 Absolute Nucleated RBC 0.00 Nucleated RBC % 0.0 Sodium 131 L Potassium 4.4 Chloride 95 L Carbon Dioxide 29 Anion Gap 7.0 BUN 18 Creatinine 0.8 Estimated GFR (MDRD) 68 L Glucose 110 H Calcium 8.8 Total Bilirubin 0.7 AST 27 ALT 26 Alkaline Phosphatase 46 Troponin I < 0.04 Total Protein 7.0 Albumin 3.8 Globulin 3.2 Albumin/Globulin Ratio 1.2 Lipase 22 Urine Color Urine Clarity Urine pH Ur Specific [place] Urine Protein Urine Glucose (UA) Urine Ketones Urine Occult Blood Urine Nitrite Urine Bilirubin Urine Urobilinogen Ur Leukocyte Esterase Ur Microscopic Review Urine Culture Comments 04/05/18 17:15 WBC RBC Hgb Hct MCV MCH MCHC RDW Plt Count MPV Neut # Lymph # [place] # Eos # Baso # Absolute Nucleated RBC Nucleated RBC % Sodium Potassium Chloride Carbon Dioxide Anion Gap BUN Creatinine Estimated GFR (MDRD) Glucose Calcium Total Bilirubin AST ALT Alkaline Phosphatase Troponin I Total Protein Albumin Globulin Albumin/Globulin Ratio Lipase Urine Color YELLOW Urine Clarity CLEAR Urine pH 7.0 Ur Specific [place] <=1.005 Urine Protein NEGATIVE Urine Glucose (UA) NEGATIVE Urine Ketones NEGATIVE Urine Occult Blood NEGATIVE Urine Nitrite NEGATIVE Urine Bilirubin NEGATIVE Urine Urobilinogen 0.2 (NORMAL) Ur Leukocyte Esterase NEGATIVE Ur Microscopic Review NOT INDICATED Urine Culture Comments NOT INDICATED Procedures - IVC sono (time) 1540 Bedside IVC sono: IVC measures (cm) (1.5), Euvolemia PD MEDICAL DECISION MAKING - ED course Complexity details: reviewed old records, reviewed results, re-evaluated patient , considered differential, d/w patient ED course: 87-year-old female with continued feeling of weakness and fatigue 8 days after starting treatment for pneumonia. Her chest x-ray is unremarkable today and her blood work shows only minimal hyponatremia. Urinalysis is unremarkable. I reassured the patient and she does not appear ill. Departure - Departure Disposition: 01 Home, Self Care Clinical Impression: Upper respiratory tract infection Qualifiers: URI type: unspecified URI Qualified Code(s): J06.9 - Acute upper respiratory infection, unspecified Condition: Stable Instructions: ED Upper Resp Infec Abx Tx Follow-Up: Celia Desir MD [Primary Care Provider] - Comments: Today your chest x-ray and blood work are reassuring and this appears to be improving. Finish your antibiotic and expect to have resolution of her symptoms within the next 3 weeks. It is not unusual to take this long to regain her strength entirely.
[2018-04-05 17:35] LABS: CLARITY,URINE CLEAR (CLEAR)
[2018-04-05 17:55] VITALS: BP 162/75
== END 2018-04-05 18:07 | disposition home or self-care (01) ==
LOC: EDUNIT# → ED 15:09
DX: J06.9 Acute upper respiratory infection, unspecified (principal); I10 Essential (primary) hypertension; E78.00 Pure hypercholesterolemia, unspecified; I25.10 Atherosclerotic heart disease of native coronary artery without angina pectoris; I25.2 Old myocardial infarction; M79.7 Fibromyalgia; Z87.891 Personal history of nicotine dependence
CPT/HCPCS: 36415; 71046; 80053; 81001; 81003; 83690; 84484; 85025; 87086; 99283; 99284

== ENCOUNTER 2018-05-12 11:52 | Outpatient (CLI) | payer MEDICARE, OTHER ==
--- NOTE | 2018-05-13 13:29 | CT Report ---
Procedure Date: 05/12/2018 Accession Number: [id number] / [id number] Procedure: CT - Chest W/O CPT Code: FULL RESULT: EXAM: CT CHEST EXAM DATE: 05/12/2018 12:14 PM. CLINICAL HISTORY: Cough, shortness of breath. COMPARISONS: Chest CT 08/25/2015. Chest x-ray 04/05/2018. TECHNIQUE: Routine helical CT imaging was performed through the chest. IV contrast: None. Reconstructions: Coronal and sagittal. In accordance with CT protocol optimization, one or more of the following dose reduction techniques were utilized for this exam: automated exposure control, adjustment of mA and/or KV based on patient size, or use of iterative reconstructive technique. FINDINGS: Lungs/Pleura: Bilateral bronchial wall thickening more prominent right mid and lower lung. Modestly more prominent irregular linear and centrilobular opacities in lower posterior inferior right upper lobe, right middle lobe, and right lower lobe. Mild traction bronchiectasis right middle lobe. No dominant nodule or amy consolidation. Clearing of previous nodular infiltrates in superior segment left lower lobe. A stable 2 mm peripheral left upper lobe nodule (21/4) and cluster of mild centrilobular opacities in lower posterior lateral left upper lobe. Interval 3 mm anterior left upper lobe nodule (13). No central endobronchial obstructing lesion. No pneumothorax or pleural effusion. Mediastinum: No mediastinal or hilar adenopathy. Normal heart size without pericardial effusion. Coronary and aortic calcifications. No aneurysm. Bones: Degenerative changes of the spine. No aggressive bone destructive process. Visualized Abdomen: Unremarkable. Other: Similar bilateral hypodense thyroid nodules up to 1.3 cm on the right. No axillary adenopathy by size criteria. IMPRESSION: 1. Resolution of superior segment left lower lobe infiltrates. 2. Suspect chronic bronchitis/bronchiolitis with postinflammatory scarring mainly of right mid and lower lung. No confluent consolidation. 3. An interval 3 mm left upper lobe nodule, probably inflammatory. No routine followup needed if low risk versus optional CT in 12 months if high risk per Fleischner Society guidelines. 4. No pathologic adenopathy. 5. Similar nodular thyroid gland which does not need detailed workup. RADIA
== END 2018-05-12 11:53 | disposition home or self-care (01) ==
LOC: DI 11:52
PROVIDERS: ATTEND Family Medicine
DX: R91.1 Solitary pulmonary nodule (principal); R05 Cough
CPT/HCPCS: 71250

== ENCOUNTER 2018-08-18 13:15 | Emergency (ER) | payer MEDICARE, OTHER ==
[2018-08-18 14:11] LABS: BASOPHILS # (AUTO) 0.1 10^3/uL (0.0-0.1); BASOPHILS % (AUTO) 1.2 %; EOSINOPHILS # (AUTO) 0.3 10^3/uL (0.0-0.7); EOSINOPHILS % (AUTO) 4.5 %; HGB - HEMOGLOBIN 13.6 g/dL (12.0-16.0); LYMPHOCYTES # (AUTO) 1.3 10^3/uL (1.5-3.5); LYMPHOCYTES % (AUTO) 22.9 %; MEAN CORPUSCULAR HEMOGLOBIN 32.7 pg (27.0-31.0); MEAN CORPUSCULAR HGB CONC 34.2 g/dL (32.0-36.0); MEAN CORPUSCULAR VOLUME 95.8 fL (81.0-99.0); MEAN PLATELET VOLUME 8.3 fL (7.9-10.8); MONOCYTES # (AUTO) 0.6 10^3/uL (0.0-1.0); MONOCYTES % (AUTO) 10.8 %; NEUTROPHILS # (AUTO) 3.5 10^3/uL (1.5-6.6); NEUTROPHILS % (AUTO) 60.6 %; PLT - PLATELET COUNT 215 10^3/uL (130-450); RED BLOOD COUNT 4.17 10^6/uL (4.20-5.40); RED CELL DISTRIBUTION WIDTH 13.1 % (12.0-15.0); WHITE BLOOD COUNT 5.8 x10^3/uL (4.8-10.8)
[2018-08-18 14:24] LABS: ALBUMIN 3.8 g/dL (3.2-5.5); ALBUMIN/GLOBULIN RATIO 1.3 (1.0-2.2); BILIRUBIN,TOTAL 0.5 mg/dL (0.2-1.0); CALCIUM 8.8 mg/dL (8.5-10.3); CREATININE 0.6 mg/dL (0.4-1.0); TOTAL PROTEIN 6.8 g/dL (6.7-8.2)
--- NOTE | 2018-08-18 14:55 | XRAY Report ---
Reason: cough Procedure Date: 08/18/2018 Accession Number: [id number] / [id number] Procedure: XR - Chest 2 View X-Ray CPT Code: 76160 FULL RESULT: EXAM: CHEST RADIOGRAPHY EXAM DATE: 08/18/2018 02:23 PM. CLINICAL HISTORY: Cough. COMPARISON: CHEST 2 VIEW 04/05/2018 3:28 PM. TECHNIQUE: 2 views. FINDINGS: Lungs/Pleura: There is new patchy airspace disease in the anterior left mid lung left upper lobe. Lung volumes are stable. Negative for pleural effusion and pneumothorax. Mediastinum: Heart size is normal. Trachea is midline. Other: None. IMPRESSION: New left upper lobe, perihilar airspace disease suspicious for pneumonia. RADIA
--- NOTE | 2018-08-18 15:06 | ED Physician Documentation ---
History of Present Illness - Stated complaint Stated Complaint: COUGH - Chief complaint Chief Complaint: Resp - Additonal information Additional information: hx from pt 87 f to ED with cough X several days to a week now productive little soa no fever feels cold no NVD some pain and cramps behind her right knee recently hx DVT and her blood pressure was running 90s systolic Review of Systems Constitutional: reports: Chills. denies: Fever Throat: denies: Sore throat Cardiac: denies: Chest pain / pressure Respiratory: reports: Cough GI: denies: Abdominal Pain, Nausea, Vomiting Musculoskeletal: reports: Joint pain Endocrine: denies: Easy bruising / bleeding Immunocompromised: denies: Immunocompromised PD PAST MEDICAL HISTORY - Past Medical History Past Medical History: Yes Cardiovascular: Hypertension, High cholesterol, Coronary artery disease, [place] Respiratory: Pneumonia Neuro: CVA GI: GERD, Ulcers, Other : Incontinence HEENT: Macular degeneration, Chronic hearing loss Psych: Depression, Anxiety Musculoskeletal: Fibromyalgia, Chronic back pain Derm: Other - Past Surgical History Past Surgical History: Yes General: Bowel surgery, Other Ortho: Spine surgery /[employer]: Hysterectomy Cardiovascular: Coronary stent HEENT: Cataracts - Present Medications Home Medications: Ambulatory Orders Medication Instructions Recorded Confirmed Alprazolam [Alprazolam ER] 0.5 mg PO DAILY 07/22/13 07/28/17 Azelastine HCl [Astelin] 137 mcg NS BID 07/22/13 07/28/17 Estradiol 0.05 mg Patch [Vivelle] 1 each TOP DAILY 07/22/13 07/28/17 Metoprolol Succinate 25 mg PO DAILY 07/22/13 07/28/17 Mirtazapine 30 mg PO DAILY 07/22/13 07/28/17 Simvastatin 20 mg PO DAILY 07/22/13 07/28/17 Triazolam 37.5 mg PO QPM 07/22/13 07/28/17 Escitalopram [Lexapro] 20 mg ORAL DAILY 08/25/15 07/28/17 Aspirin/Dipyridamole [Aggrenox] 1 tab PO DAILY 11/22/15 07/28/17 Alprazolam [Xanax] 0.25 mg PO Q8H PRN #15 tablet 06/09/17 07/28/17 Losartan [Cozaar] 25 mg PO DAILY 07/18/17 09/05/17 Escitalopram Oxalate [Lexapro] 20 mg PO DAILY PM 07/28/17 07/28/17 Meclizine HCl 12.5 mg PO TID PRN #14 tablet 07/28/17 Sulfamethox/Trimeth 800/160 1 tab PO BID #6 tablet 07/28/17 [Bactrim Ds 800/160] Amox/Clav 875/125 [Augmentin] 1 each PO Q12H #20 tablet 03/28/18 Amox/Clav 875/125 [Augmentin] 1 each PO Q12H #27 tablet 08/18/18 - Allergies Allergies/Adverse Reactions: Allergies Allergy/AdvReac Type Severity Reaction Status Date / Time clarithromycin [From Biaxin] AdvReac Unknown Rash Verified 08/18/18 13:26 codeine AdvReac Unknown Nausea Verified 08/18/18 13:26 cortisone AdvReac Unknown Rash Verified 08/18/18 13:26 cyclobenzaprine AdvReac Unknown Cramps Verified 08/18/18 13:26 [Cyclobenzaprine] duloxetine HCl * AdvReac Unknown Rash Verified 08/18/18 13:26 [From Cymbalta] fluorometholone AdvReac Unknown Rash Verified 08/18/18 13:26 gabapentin [From Neurontin] AdvReac Unknown Cramps Verified 08/18/18 13:26 ibuprofen [From Advil] AdvReac Unknown Nausea Verified 08/18/18 13:26 iodine AdvReac Unknown Rash Verified 08/18/18 13:26 nepafenac [From Nevanac] AdvReac Unknown Nausea Verified 08/18/18 13:26 oxycodone AdvReac Unknown Nausea Verified 08/18/18 13:26 prednisone AdvReac Unknown Anxiety Verified 08/18/18 13:26 propoxyphene HCl * AdvReac Unknown Nausea Verified 08/18/18 13:26 [From Darvon] ciprofloxacin AdvReac Anxiety Verified 08/18/18 13:26 clonazepam AdvReac Unknown Verified 08/18/18 13:26 iodine Allergy Hives Uncoded 08/18/18 13:26 bees AdvReac Unknown Respiratory Uncoded 08/18/18 13:26 - Social History Does the pt smoke?: No Smoking Status: Former smoker Does the pt drink ETOH?: Yes ETOH Use: Wine Does the pt have substance abuse?: No - Immunizations Immunizations are current?: Yes Immunizations: TDAP current <10years - POLST Patient has POLST: No PD ED PE NORMAL - Vitals Vital signs reviewed: Yes - Neck Neck: Supple, no meningeal sign - Cardiac Cardiac: RRR - Respiratory Respiratory: No respiratory distress, Other (mild ronchi bilaterally) - Abdomen Abdomen: Soft, Non tender - Derm Derm: Normal color - Extremities Extremities: No deformity, No edema (wears compression hoes) - Neuro Neuro: Alert and oriented X 3 Results - Vitals Vitals: Vital Signs - 24 hr 08/18/18 08/18/18 13:22 14:54 Temperature 36.4 C L 36.9 C Heart Rate 82 81 Respiratory 16 16 Rate Blood Pressure 137/64 H 135/71 H O2 Saturation 95 96 Oxygen O2 Source Room air - Labs Labs: Laboratory Tests 08/18/18 08/18/18 08/18/18 14:05 14:05 15:12 WBC 5.8 RBC 4.17 L Hgb 13.6 Hct 39.9 MCV 95.8 MCH 32.7 H MCHC 34.2 RDW 13.1 Plt Count 215 MPV 8.3 Neut # (Auto) 3.5 Lymph # (Auto) 1.3 L [place] # (Auto) 0.6 Eos # (Auto) 0.3 Baso # (Auto) 0.1 Absolute Nucleated RBC 0.00 Nucleated RBC % 0.0 Sodium 134 L Potassium 4.4 Chloride 98 L Carbon Dioxide 29 Anion Gap 7.0 BUN 21 H Creatinine 0.6 Estimated GFR (MDRD) 94 Glucose 117 H Calcium 8.8 Total Bilirubin 0.5 AST 24 ALT 22 Alkaline Phosphatase 53 Total Protein 6.8 Albumin 3.8 Globulin 3.0 Albumin/Globulin Ratio 1.3 Lipase 27 Urine Color Urine Clarity Urine pH Ur Specific [place] Urine Protein Urine Glucose (UA) Urine Ketones Urine Occult Blood Urine Nitrite Urine Bilirubin Urine Urobilinogen Ur Leukocyte Esterase Ur Microscopic Review Urine Culture Comments Influenza A (Rapid) Negative Influenza B (Rapid) Negative 08/18/18 15:13 WBC RBC Hgb Hct MCV MCH MCHC RDW Plt Count MPV Neut # (Auto) Lymph # (Auto) [place] # (Auto) Eos # (Auto) Baso # (Auto) Absolute Nucleated RBC Nucleated RBC % Sodium Potassium Chloride Carbon Dioxide Anion Gap BUN Creatinine Estimated GFR (MDRD) Glucose Calcium Total Bilirubin AST ALT Alkaline Phosphatase Total Protein Albumin Globulin Albumin/Globulin Ratio Lipase Urine Color YELLOW Urine Clarity CLEAR Urine pH 6.5 Ur Specific [place] 1.010 Urine Protein NEGATIVE Urine Glucose (UA) NEGATIVE Urine Ketones NEGATIVE Urine Occult Blood TRACE-INTA Urine Nitrite NEGATIVE Urine Bilirubin NEGATIVE Urine Urobilinogen 0.2 (NORMAL) Ur Leukocyte Esterase NEGATIVE Ur Microscopic Review NOT INDICATED Urine Culture Comments NOT INDICATED Influenza A (Rapid) Influenza B (Rapid) - Rads (name of study) CXR Radiology: See rad report (JOSÉ infiltrate) PD MEDICAL DECISION MAKING - ED course ED course: pt states she usually takes augmentin for 2 weeks for her pna and that is what works best for her - Sepsis Event Vital Signs: Vital Signs - 24 hr 08/18/18 08/18/18 13:22 14:54 Temperature 36.4 C L 36.9 C Heart Rate 82 81 Respiratory 16 16 Rate Blood Pressure 137/64 H 135/71 H O2 Saturation 95 96 Oxygen O2 Source Room air Departure - Departure Disposition: 01 Home, Self Care Clinical Impression: Pneumonia Qualifiers: Pneumonia type: due to unspecified organism Laterality: left Lung location: upper lobe of lung Qualified Code(s): J18.1 - Lobar pneumonia, unspecified organism Condition: Good Instructions: ED Pneumonia Adult Follow-Up: Celia Desir MD [Primary Care Provider] - Prescriptions: Amox/Clav 875/125 [Augmentin] 1 each PO Q12H #27 tablet Comments: The xray shows a left sided pneumonia The influenza test was negative And the ultrasound of your leg did not show a blood clot so it is unlikely you have a blood clot in your lungs Your vitals signs are OK now and I think it is safe for you to go home on antibiotics Please follow up with your PMD for a recheck before the weekend if possible
[2018-08-18 15:26] LABS: BILIRUBIN,URINE NEGATIVE (NEGATIVE); GLUCOSE, URINE (UA) NEGATIVE (NEGATIVE); KETONES,URINE (UA) NEGATIVE (NEGATIVE); LEUKOCYTE ESTERASE, URINE NEGATIVE (NEGATIVE); NITRITE,URINE NEGATIVE (NEGATIVE); OCCULT BLOOD,URINE TRACE-INTA (NEGATIVE); PH,URINE 6.5 PH (5.0-7.5); PROTEIN,URINE NEGATIVE (NEGATIVE); UROBILINOGEN,URINE 0.2 (NORMAL) E.U./dL (NORMAL)
[2018-08-18 15:29] LABS: CLARITY,URINE CLEAR (CLEAR)
[2018-08-18] MEDS ORDERED: AMOX/CLAV 875 MG/125 MG TABLET PO STA (17:32)
--- NOTE | 2018-08-18 17:41 | Ultrasound Report ---
Reason: L popliteal pain cough and soa Procedure Date: 08/18/2018 Accession Number: [id number] / [id number] Procedure: US - Duplex Ext Veins Left CPT Code: FULL RESULT: EXAM: LEFT LOWER EXTREMITY VENOUS ULTRASOUND EXAM DATE: 08/18/2018 03:38 PM. CLINICAL HISTORY: Left popliteal pain cough and shortness of air. COMPARISON: None. TECHNIQUE: Real-time sonographic vascular imaging was performed by the provider relations specialist through the lower extremity utilizing both color-flow and Doppler spectral analysis. Multiple public health representative static images were saved for review. FINDINGS: Common Femoral Vein (CFV): Normal. CFV-GSV Junction: Normal. Profunda Femoral Vein (PFV): Normal. Femoral Vein (FV) Prox: Normal. Femoral Vein (FV) Mid: Normal. Femoral Vein (FV) Dist: Normal. Popliteal Vein: Normal. Posterior Tibial Veins: Normal. Peroneal Veins: Normal. Contralateral Side CFV: Normal. Other: None. IMPRESSION: No evidence for deep venous thrombosis. RADIA
[2018-08-18 18:10] VITALS: BP 131/74
== END 2018-08-18 18:00 | disposition home or self-care (01) ==
LOC: ED 13:15
DX: J18.1 Lobar pneumonia, unspecified organism (principal); I10 Essential (primary) hypertension; Z86.718 Personal history of other venous thrombosis and embolism; Z87.891 Personal history of nicotine dependence
CPT/HCPCS: 36415; 71046; 80053; 81003; 83690; 85025; 87275; 87276; 93971; 99283; 99284; A9270; 81001; 87086

== ENCOUNTER 2018-08-23 11:39 | Emergency (ER) | payer MEDICARE, OTHER ==
--- NOTE | 2018-08-23 14:16 | XRAY Report ---
Reason: pna Procedure Date: 08/23/2018 Accession Number: [id number] / [id number] Procedure: XR - Chest 2 View X-Ray CPT Code: 71547 FULL RESULT: EXAM: CHEST RADIOGRAPHY EXAM DATE: 08/23/2018 01:45 PM. CLINICAL HISTORY: PNA. COMPARISON: Chest 2 view 08/18/2018 2:15 PM. TECHNIQUE: 2 views. FINDINGS: Lungs/Pleura: No focal opacities evident. No pleural effusion. No pneumothorax. Normal volumes. Mediastinum: Heart and mediastinal contours are unremarkable. Other: None. IMPRESSION: No acute cardiopulmonary abnormality. There is no lobar consolidation and no interval worsening of the radiograph. RADIA
[2018-08-23] MEDS ORDERED: LIDOCAINE 1% 2 ML VIAL SUBQ ONE (14:35)
[2018-08-23] MEDS ORDERED: cefTRIAXone 1 GM VIAL IM STA (14:35)
[2018-08-23] MEDS ORDERED: DOXYCYCLINE 100 MG TABLET PO STA (14:35)
--- NOTE | 2018-08-23 14:42 | ED Physician Documentation ---
PD HPI DYSPNEA - Stated complaint Stated Complaint: COUGH/FEVER - Chief complaint Chief Complaint: Resp - History obtained from History obtained from: Patient - History of Present Illness Timing - onset: Other (87-year-old woman with recent diagnosis of left upper lobe pneumonia by chest x-ray. She was put on Augmentin given various antibiotic allergies. She feels no better. No worse either. She still has a productive cough with green sputum. Denies shortness of breath but feels like she still is running fevers on occasion.) Review of Systems Constitutional: reports: Fever, Chills, Fatigue Cardiac: denies: Chest pain / pressure, Palpitations Respiratory: reports: Cough. 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 Cardiovascular: Coronary stent HEENT: Cataracts - Present Medications Home Medications: Ambulatory Orders Medication Instructions Recorded Confirmed Alprazolam [Alprazolam ER] 0.5 mg PO DAILY 07/22/13 07/28/17 Azelastine HCl [Astelin] 137 mcg NS BID 07/22/13 07/28/17 Estradiol 0.05 mg Patch [Vivelle] 1 each TOP DAILY 07/22/13 07/28/17 Metoprolol Succinate 25 mg PO DAILY 07/22/13 07/28/17 Mirtazapine 30 mg PO DAILY 07/22/13 07/28/17 Simvastatin 20 mg PO DAILY 07/22/13 07/28/17 Triazolam 37.5 mg PO QPM 07/22/13 07/28/17 Alprazolam [Xanax] 0.25 mg PO Q8H PRN #15 tablet 06/09/17 07/28/17 Losartan [Cozaar] 25 mg PO DAILY 06/09/17 07/28/17 Escitalopram Oxalate [Lexapro] 20 mg PO DAILY PM 07/28/17 07/28/17 Amox/Clav 875/125 [Augmentin] 1 each PO Q12H #27 tablet 08/18/18 Albuterol Sulf [Ventolin Hfa 1 - 2 puffs INH Q4HR PRN #1 inhaler 08/23/18 Inhaler] Aspirin/Dipyridamole [Aggrenox] 1 cap PO BID 08/23/18 08/23/18 Benazepril HCl [Lotensin] 1 tab PO DAILY 08/23/18 08/23/18 Doxycycline Hyclate 100 mg PO BID #28 capsule 08/23/18 - Allergies Allergies/Adverse Reactions: Allergies Allergy/AdvReac Type Severity Reaction Status Date / Time clarithromycin [From Biaxin] AdvReac Unknown Rash Verified 08/18/18 13:26 codeine AdvReac Unknown Nausea Verified 08/18/18 13:26 cortisone AdvReac Unknown Rash Verified 08/18/18 13:26 cyclobenzaprine AdvReac Unknown Cramps Verified 08/23/18 11:47 [Cyclobenzaprine] duloxetine HCl * AdvReac Unknown Rash Verified 08/23/18 11:47 [From Cymbalta] fluorometholone AdvReac Unknown Rash Verified 08/23/18 11:47 gabapentin [From Neurontin] AdvReac Unknown Cramps Verified 08/23/18 11:47 ibuprofen [From Advil] AdvReac Unknown Nausea Verified 08/23/18 11:47 iodine AdvReac Unknown Rash Verified 08/23/18 11:47 nepafenac [From Nevanac] AdvReac Unknown Nausea Verified 08/23/18 11:47 oxycodone AdvReac Unknown Nausea Verified 08/23/18 11:47 prednisone AdvReac Unknown Anxiety Verified 08/23/18 11:47 propoxyphene HCl * AdvReac Unknown Nausea Verified 08/23/18 11:47 [From Darvon] ciprofloxacin AdvReac Anxiety Verified 08/18/18 13:26 clonazepam AdvReac Unknown Verified 08/18/18 13:26 iodine Allergy Hives Uncoded 08/18/18 13:26 bees AdvReac Unknown Respiratory Uncoded 08/18/18 13:26 - Social History Does the pt smoke?: No Smoking Status: Former smoker Does the pt drink ETOH?: Yes Does the pt have substance abuse?: No - Immunizations Immunizations are current?: Yes Immunizations: TDAP current <10years - POLST Patient has POLST: No PD ED PE NORMAL - Vitals Vital signs reviewed: Yes - General General: Alert and oriented X 3, No acute distress - HEENT HEENT: Pharynx benign - Neck Neck: Supple, no meningeal sign, No bony TTP - Cardiac Cardiac: RRR, No murmur - Respiratory Respiratory: No respiratory distress, Other (Mild diffuse rhonchi) - Abdomen Abdomen: Non tender - Extremities Extremities: No edema, No calf tenderness / cord - Neuro Neuro: Alert and oriented X 3, Normal speech Results - Vitals Vitals: Vital Signs - 24 hr 08/23/18 11:44 Temperature 36.5 C Heart Rate 70 Respiratory 18 Rate Blood Pressure 145/72 H O2 Saturation 94 Oxygen O2 Source Room air - Rads (name of study) 2v chest Radiology: EMP read contemporaneously (clear) PD MEDICAL DECISION MAKING - ED course ED course: 87-year-old woman with persistent pneumonic symptoms after 6 days of antibiotic treatment. Given advanced age will change to doxycycline which she is also been on the past without ill effect. - Sepsis Event Vital Signs: Vital Signs - 24 hr 08/23/18 11:44 Temperature 36.5 C Heart Rate 70 Respiratory 18 Rate Blood Pressure 145/72 H O2 Saturation 94 Oxygen O2 Source Room air Departure - Departure Disposition: 01 Home, Self Care Clinical Impression: Pneumonia Condition: Good Record reviewed to determine appropriate education?: Yes Instructions: Pneumonia Dc Prescriptions: Albuterol Sulf [Ventolin Hfa Inhaler] 1 - 2 puffs INH Q4HR PRN #1 inhaler PRN Reason: Shortness Of Air/Wheezing Doxycycline Hyclate 100 mg PO BID #28 capsule Comments: Call your doctor to arrange a follow-up appointment, make the next available appointment. In the interim, return anytime if worse or if new symptoms develop. Your blood pressure was elevated today on check into the emergency department. This does not mean that you have hypertension, it is a common phenomenon to come to the emergency department and have elevated blood pressure. I recommend that you see your primary care physician within the week to have it rechecked when you are feeling better.
[2018-08-23 14:53] VITALS: BP 117/58
== END 2018-08-23 15:20 | disposition home or self-care (01) ==
LOC: ED 11:39
DX: J18.9 Pneumonia, unspecified organism (principal); I10 Essential (primary) hypertension; Z79.82 Long term (current) use of aspirin; Z87.891 Personal history of nicotine dependence
CPT/HCPCS: 71046; 96372; 99283; A9270

== ENCOUNTER 2019-03-09 11:26 | Emergency (ER) | payer MEDICARE, OTHER ==
--- NOTE | 2019-03-09 12:07 | ED Physician Documentation ---
PD HPI LOWER EXT INJURY - Stated complaint Stated Complaint: RIGHT KNEE PAIN - Chief complaint Chief Complaint: Trauma Ext - History obtained from History obtained from: Patient, Family - History of Present Illness PD HPI LOW EXT INJURY LOCATION: Right (Last 2-3 months her knee has been bothering her a little bit. She saw her physician who diagnosed her with a knee derangement. Last night she was twisting and the pain got much worse and radiates down the leg and now can barely walk.) Review of Systems Constitutional: denies: Fever, Chills Cardiac: reports: Reviewed and negative Respiratory: reports: Reviewed and negative GI: reports: Reviewed and negative PD PAST MEDICAL HISTORY - Past Medical History Cardiovascular: Hypertension, High cholesterol, Coronary artery disease, [place] Respiratory: Pneumonia Neuro: CVA GI: GERD, Ulcers, Other : Incontinence HEENT: Macular degeneration, Chronic hearing loss Psych: Depression, Anxiety Musculoskeletal: Fibromyalgia, Chronic back pain Derm: Other - Past Surgical History Past Surgical History: Yes General: Bowel surgery, Other 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 Cardiovascular: Coronary stent HEENT: Cataracts - Present Medications Home Medications: Ambulatory Orders Medication Instructions Recorded Confirmed Alprazolam [Alprazolam ER] 0.5 mg PO DAILY 07/22/13 07/28/17 Azelastine HCl [Astelin] 137 mcg NS BID 07/22/13 07/28/17 Estradiol 0.05 mg Patch [Vivelle] 1 each TOP DAILY 07/22/13 07/28/17 Metoprolol Succinate 25 mg PO DAILY 07/22/13 07/28/17 Mirtazapine 30 mg PO DAILY 07/22/13 07/28/17 Simvastatin 20 mg PO DAILY 07/22/13 07/28/17 Triazolam 37.5 mg PO QPM 07/22/13 07/28/17 Alprazolam [Xanax] 0.25 mg PO Q8H PRN #15 tablet 06/09/17 07/28/17 Losartan [Cozaar] 25 mg PO DAILY 06/09/17 07/28/17 Escitalopram Oxalate [Lexapro] 20 mg PO DAILY PM 07/28/17 07/28/17 Amox/Clav 875/125 [Augmentin] 1 each PO Q12H #27 tablet 08/18/18 Albuterol Sulf [Ventolin Hfa 1 - 2 puffs INH Q4HR PRN #1 inhaler 08/23/18 Inhaler] Aspirin/Dipyridamole [Aggrenox] 1 cap PO BID 08/23/18 08/23/18 Benazepril HCl [Lotensin] 1 tab PO DAILY 08/23/18 08/23/18 Doxycycline Hyclate 100 mg PO BID #28 capsule 08/23/18 - Allergies Allergies/Adverse Reactions: Allergies Allergy/AdvReac Type Severity Reaction Status Date / Time clarithromycin [From Biaxin] AdvReac Unknown Rash Verified 03/09/19 11:36 codeine AdvReac Unknown Nausea Verified 03/09/19 11:36 cortisone AdvReac Unknown Rash Verified 03/09/19 11:36 cyclobenzaprine AdvReac Unknown Cramps Verified 03/09/19 11:36 [Cyclobenzaprine] duloxetine HCl * AdvReac Unknown Rash Verified 03/09/19 11:36 [From Cymbalta] fluorometholone AdvReac Unknown Rash Verified 03/09/19 11:36 gabapentin [From Neurontin] AdvReac Unknown Cramps Verified 03/09/19 11:36 ibuprofen [From Advil] AdvReac Unknown Nausea Verified 03/09/19 11:36 iodine AdvReac Unknown Rash Verified 03/09/19 11:36 nepafenac [From Nevanac] AdvReac Unknown Nausea Verified 03/09/19 11:36 oxycodone AdvReac Unknown Nausea Verified 03/09/19 11:36 prednisone AdvReac Unknown Anxiety Verified 03/09/19 11:36 propoxyphene HCl * AdvReac Unknown Nausea Verified 03/09/19 11:36 [From Darvon] ciprofloxacin AdvReac Anxiety Verified 03/09/19 11:36 clonazepam AdvReac Unknown Verified 03/09/19 11:36 iodine Allergy Hives Uncoded 03/09/19 11:36 bees AdvReac Unknown Respiratory Uncoded 03/09/19 11:36 - Social History Does the pt smoke?: No Smoking Status: Never smoker Does the pt drink ETOH?: Yes Does the pt have substance abuse?: No - Immunizations Immunizations are current?: Yes Immunizations: TDAP current <10years - POLST Patient has POLST: No PD ED PE NORMAL - Vitals Vital signs reviewed: Yes - General General: Alert and oriented X 3, No acute distress - Extremities Extremities: Other (R knee without significant effusion. She has full and painless range of motion. She is mildly tender over the medial and lateral joint line. And slight positive grind testing. Ligamentous testing is all intact.) - Neuro Neuro: Alert and oriented X 3, Normal speech Results - Vitals Vitals: Vital Signs - 24 hr 03/09/19 11:33 Temperature 36.9 C Heart Rate 67 Respiratory 17 Rate Blood Pressure 120/65 O2 Saturation 95 Oxygen O2 Source Room air - Rads (name of study) R knee 4v Radiology: EMP read contemporaneously (NAD) RLE DVt sono Radiology: EMP read contemporaneously (neg) PD MEDICAL DECISION MAKING - ED course ED course: This is a 88-year-old woman with acute right knee pain that is hard for her to localize. It is minimal at rest but hurts a lot with walking. Her examination is relatively benign. DVT is considered but sono is negative and her x-rays look surprisingly useful for her age. We got her up with a knee immobilizer and she did very well. Further history it started after a change in her sleeping position because of her recent diagnosis of bronchiectasis. This led me to think of a potential iliotibial band syndrome and she does have pretty positive testing for that and was given stretches to do. Departure - Departure Disposition: 01 Home, Self Care Clinical Impression: Iliotibial band syndrome affecting right lower leg Right knee pain Qualifiers: Chronicity: acute Qualified Code(s): M25.561 - Pain in right knee Condition: Good Record reviewed to determine appropriate education?: Yes Instructions: ED Knee Pain [facility] Follow-Up: [facility] [Provider Group] Comments: As discussed, I think this is consistent with iliotibial band syndrome. Tylenol as needed for pain and do the stretches as shown. if not better by the end of the week and follow-up with the orthopedics clinic for further evaluation and treatment.
[2019-03-09] MEDS ORDERED: ACETAMINOPHEN 325 MG TABLET PO STA (12:21)
--- NOTE | 2019-03-09 13:43 | Ultrasound Report ---
Reason: RLE pain Procedure Date: 03/09/2019 Accession Number: [id number] / [id number] Procedure: US - Duplex Ext Veins Right CPT Code: FULL RESULT: EXAM: RIGHT LOWER EXTREMITY VENOUS ULTRASOUND EXAM DATE: 03/09/2019 12:45 PM. CLINICAL HISTORY: Right leg pain. COMPARISON: None. TECHNIQUE: Real-time sonographic vascular imaging was performed by the manager cleaning through the lower extremity utilizing both color-flow and Doppler spectral analysis. Multiple sales representative business courses static images were saved for review. FINDINGS: Common Femoral Vein (CFV): Normal. CFV-GSV Junction: Normal. Profunda Femoral Vein (PFV): Normal. Femoral Vein (FV) Prox: Normal. Femoral Vein (FV) Mid: Normal. Femoral Vein (FV) Dist: Normal. Popliteal Vein: Normal. Posterior Tibial Veins: Normal. Peroneal Veins: Normal. Contralateral Side CFV: Normal. Other: None. IMPRESSION: No evidence for deep venous thrombosis. [facility]
--- NOTE | 2019-03-09 14:27 | XRAY Report ---
Reason: R knee pain Procedure Date: 03/09/2019 Accession Number: [id number] / [id number] Procedure: XR - Knee 4 View RT CPT Code: FULL RESULT: EXAM: RIGHT KNEE RADIOGRAPHY EXAM DATE: 03/09/2019 01:35 PM. CLINICAL HISTORY: Right knee pain. COMPARISON: None. TECHNIQUE: 3 views. FINDINGS: Bones: No acute finding. Minimal joint space narrowing in the medial compartment no joint effusion. Joints: Normal. No effusion. No subluxations. Soft Tissues: Normal. No soft tissue swelling. IMPRESSION: No acute abnormality. [facility]IA
[2019-03-09 14:45] VITALS: BP 134/78
== END 2019-03-09 14:45 | disposition home or self-care (01) ==
LOC: ED 11:26
DX: M76.31 Iliotibial band syndrome, right leg (principal); M25.561 Pain in right knee; I10 Essential (primary) hypertension; E78.00 Pure hypercholesterolemia, unspecified; I25.10 Atherosclerotic heart disease of native coronary artery without angina pectoris; Z95.5 Presence of coronary angioplasty implant and graft; I25.2 Old myocardial infarction; Z86.73 Personal history of transient ischemic attack (TIA), and cerebral infarction without residual deficits
CPT/HCPCS: 73564; 93971; 99283; A9270

== ENCOUNTER 2019-08-01 23:20 | Emergency (ER) | payer MEDICARE, OTHER ==
[2019-08-01 23:34] VITALS: BP 181/82
== END 2019-08-02 00:40 | disposition left against medical advice (07) ==
LOC: ED 23:20
DX: Z53.21 Procedure and treatment not carried out due to patient leaving prior to being seen by health care provider (principal)

== ENCOUNTER 2019-08-15 14:13 | Outpatient (CLI) | payer MEDICARE, OTHER ==
--- NOTE | 2019-08-15 16:00 | XRAY Report ---
Reason: COUGH Procedure Date: 08/15/2019 Accession Number: [id number] / [id number] Procedure: XR - Chest 2 View X-Ray CPT Code: 76999 FULL RESULT: EXAM: CHEST RADIOGRAPHY EXAM DATE: 08/15/2019 02:24 PM. CLINICAL HISTORY: Cough. COMPARISON: CHEST 2 VIEW 08/23/2018 1:50 PM. TECHNIQUE: 2 views. FINDINGS: Lungs/Pleura: No focal opacities evident. No pleural effusion. No pneumothorax. High volumes without flattening of diaphragms. Mediastinum: Heart and mediastinal contours are unremarkable. Other: None. IMPRESSION: No definite acute airspace disease is detected. [facility]IA
== END 2019-08-15 14:14 | disposition home or self-care (01) ==
LOC: DI 14:13
PROVIDERS: ATTEND Family Medicine
DX: R05 Cough (principal)
CPT/HCPCS: 71046

== ENCOUNTER 2019-08-20 11:39 | Outpatient (CLI) | payer MEDICARE, OTHER | END 2019-08-20 11:40 | disposition critical access hospital (66) | LOC: EMS 11:39 | PROVIDERS: ATTEND Surgery | DX: S61.411A Laceration without foreign body of right hand, initial encounter (principal); W01.190A Fall on same level from slipping, tripping and stumbling with subsequent striking against furniture, initial encounter; Y92.009 Unspecified place in unspecified non-institutional (private) residence as the place of occurrence of the external cause | CPT/HCPCS: A0425; A0429 ==